=== PATIENT | male | born 1960 | race Caucasian/White ===

== ENCOUNTER 2020-01-27 10:11 | Inpatient (IN) ==
[2020-01-27] MEDS ORDERED: PANTOprazole 80 MG in DEXTROSE 5% 100 ML IV ONE (11:42)
[2020-01-27] MEDS ORDERED: FAMOTIDINE 20MG IV PUSH 20 MG/5 ML SYR IV STA (11:42)
[2020-01-27] MEDS ORDERED: SODIUM CHLORIDE 0.9% 1000ML 1,000 ML IV STA (11:42)
[2020-01-27] MEDS ORDERED: ONDANSETRON INJ 2 MG/ML 2 ML VIAL IV STA (11:42)
[2020-01-27] MEDS ORDERED: PANTOprazole 40 MG in DEXTROSE 5% 100 ML IV SCH (11:45)
[2020-01-27] MEDS ORDERED: SODIUM CHLORIDE 0.9% 500 ML IV SCH (11:45)
[2020-01-27 11:46] LABS: iSTAT Creatinine 0.9 mg/dl (0.6-1.3); iSTAT Hemoglobin 9.2 g/dl (14.0-18.0); iSTAT Ionized Calcium 1.19 mmol/l (1.12-1.32)
[2020-01-27 11:58] LABS: Basophils # (auto) 0.01 K/uL (0-0.2); Basophils % (auto) 0.1 %; Eosinophils # (auto) 0.03 K/uL (0-0.5); Eosinophils % (auto) 0.2 %; Hematocrit (blood only) 28.5 % (42-52); Hemoglobin 9.6 g/dL (14.0-18.0); Immature Granulocytes # (auto) 0.03 K/uL (0.00-0.02); Immature Granulocytes % (auto) 0.2 %; Mean Corpuscular Hemoglobin 30.2 pg (25-34); Mean Corpuscular Hgb Conc 33.7 g/dL (32-36); Mean Corpuscular Volume 89.6 fL (80-100); Monocytes # (auto) 0.78 K/uL (0.11-0.59); Monocytes % (auto) 6.2 %; Neutrophils # (auto) 10.17 K/uL (1.4-6.5); Neutrophils % (auto) 81.3 %; Platelet Count 319 K/uL (130-400); RDW Coefficient of Variation 15.4 % (11.5-14.5); RDW Standard Deviation 50.1 fL (36.4-46.3); Red Blood Count 3.18 M/uL (4.7-6.1); White Blood Count 12.52 K/uL (4.8-10.8)
[2020-01-27 12:09] LABS: Partial Thromboplastin Ratio 0.9; Partial Thromboplastin Time 24.2 Seconds (21.0-31.0); Prothrombin Time 10.5 Seconds (9.0-12.0)
[2020-01-27 12:16] LABS: Albumin Level 3.5 gm/dl (3.4-5.0); BUN Creatinine Ratio 28.7 (10-20); Calcium 8.8 mg/dl (8.5-10.1); Creatinine Clr Calc Pharmacy 104.7 ml/min; Est GFR (Non-African American) 86.3
[2020-01-27 12:18] LABS: Bilirubin,Total 0.3 mg/dl (0.2-1); Globulin 3.4 gm/dl (2.5-4.0); Total Protein 6.9 gm/dl (6.4-8.2)
--- NOTE | 2020-01-27 14:16 | Gastrointestinal Consultation ---
Date of Consultation January 27, 2020 Assessment & Plan (1) Rectal bleed: Yesterday's bloody emesis and yesterday and today's rectal bleeding may be from an anastomotic ulcer as he is post gastric bypass and was on NSAIDs for 10 days, increasing his risk for ulceration. 1. Urgent EGD 2. Continue Protonix Drip 3. Continue NPO 4. Further recommendations to follow EGD. Present on Admission?: Yes (2) Hematemesis: Supervising Physician Co-Signing Physician Notes Attending attestation I have seen, examined this patient, and agree with the findings and above by our mid-level provider YOVANNY Cuevas, with the following additions: HD stable, continue IV PPI, Plan for EGD today. History of Present Illness Reason for Consultation: GI Bleed Requesting Physician: Dr. Pelayo Attending Physician: Dr. Collier History of Present Illness Mr. William Soto is a 59 yr old male pt of Dr. Chiu with a hx HTN, obesity S/P "stomach stapling surgery 11 yr ago," who took naproxen 500mg BID for 10 days in mid December for hand surgery pain. Last night he experienced the sudden onset of diffuse abdominal pain, nausea/vomiting during eating dinner last night. Around 7PM yesterday, he vomited dark red blood and passed a large dark red bloody BM at the same time. He felt a bit lightheaded and sweaty but recovered with rest, feeling much better within an hour. Around 11PM, he passed a 2nd bloody BM but was able to sleep last night. Then at 5:30 this morning, he passed another bloody BM. Today, he has diffuse abdominal cramping and mild nausea. He is seen and examined in the ED. He is awake, alert, oriented and hemodynamically stable w/o tachycardia or hypotension. His Hb is .6, down from 12 in June 2019. He is mildly tender in the abdomen. A protonix drip is running. He has been NPO since some coffee around 6AM. Allergies Allergy/AdvReac Type Severity Reaction Status Date / Time No Known Allergies Allergy Unknown Verified 01/27/20 13:16 Home Medications Home Medications Medication Instructions Recorded Confirmed Type cholecalciferol (vitamin D3) 2,000 unit PO QAM 08/26/18 01/27/20 History levothyroxine [Levoxyl] 125 mcg PO QAM 08/26/18 01/27/20 History allopurinol 300 mg PO QAM 11/09/18 01/27/20 History lisinopril 20 mg PO QAM 11/09/18 01/27/20 History ascorbic acid (vitamin C) [Vitamin 1 g PO BID 01/27/20 01/27/20 History C] folic acid 1 mg PO QAM 01/27/20 01/27/20 History loratadine 10 mg PO QAM 01/27/20 01/27/20 History methotrexate sodium 15 mg PO WE 01/27/20 01/27/20 History montelukast 10 mg PO QAM 01/27/20 01/27/20 History naproxen 500 mg PO BID 01/27/20 01/27/20 History Patient History Medical History (Updated 01/27/20 @ 14:31 by Tod Jean) Chronic inflammatory arthritis Essential hypertension GI bleed Gout Hypothyroidism Vitamin D deficiency Surgical History History of release of tendon tenolysis left extensor finger complex 12/30/19 Hx of gastric bypass Status post trigger finger release Family History Other Gout Myocardial infarction Social History Smoking Status: Never smoker Hx Alcohol Use: No Hx Substance Use: No Preferred Language: [place] Feels Safe at Home: Yes Review of Systems Constitutional: + sweats and + weakness (for about an hour last night); no fever and no body aches Eyes: + corrective lenses; no eye pain and no problem reported Ear, Nose, Mouth, Throat: no tinnitus, no foul smell, no mouth lesions, no hoarseness, no dysphagia and no pain with swallowing Respiratory: no cough, no chest congestion, no pain with cough and no wheezing Cardiovascular: no chest pain, no dyspnea on exertion, no palpitations and no edema Gastrointestinal: as per HPI, otherwise (-) Genitourinary: no dysuria, no hematuria and no flank pain Musculoskeletal: + joint pain (several month, diffuse, seeing rheumatology; improved on methotrexate) Integumentary: no rash and no lesions Neurologic: no paresthesia, no tremor(s) and no headache(s) Psychiatric: no irritability, no anxiety and no confusion Endocrine: no fatigue, no polydipsia, no polyphagia and no polyuria Hematologic / Lymphatic: no easy bleeding, no coagulopathy and no lymphadenopathy Physical Exam Constitutional: WD/WN, vitals as above Eyes: PERRL, conjunctivae normal, anicteric sclerae ENMT: external ear and nose normal, oropharynx normal Neck: trachea midline, no thyromegaly Respiratory: normal respiratory effort, lungs clear to auscultation Cardiovascular: RRR, no murmur, no edema Gastrointestinal (Abdomen): Inspection/Auscultation: normal bowel sounds (hypoactive); abdomen not distended Percussion/Palpation: + abdomen tender (difuusely) and abdomen soft; no ascites Skin: no rashes, warm and dry normal turgor; no wound Neurologic: PERRL, EOMI, accommodation nl, no face palsy, no dysarthria Psychiatric: A+Ox3, euthymic affect Lymphatic: no cervical or axillary lymphadenopathy Results & Data ([facility]) Vital Signs (Past 12 Hours) Vital Signs Temp Pulse Pulse Resp BP BP Pulse Ox 01/27/20 12:33 92 H 92 H 22 110/67 99 01/27/20 11:44 105 H 18 124/75 98 01/27/20 10:18 36.8 C 128 H 20 106/68 97 Laboratory Results Hb 9.6, Hct 28, platelets 318 K 4.0, BUN 28, Cr 0.97
--- NOTE | 2020-01-27 14:17 | History & Physical Report ---
Date of Service January 27, 2020 Assessment & Plan (1) GI bleed: Likely related to recent NSAID use - suspect upper GI source. History of gastric bypass in 2008. - Protonix gtt started in ED - continue - Consult GI - NPO until seen by GI for potential EGD (check COVID-19 test prior to procedure) - Q8 hr H&H for stability - HOLD NSAIDS - Blood consent signed in case transfusion need for worsening H&H/additional blood loss (2) Chronic inflammatory arthritis: Holding NSAIDs. Next dose of methotrexate not until Thursday - Check B12 and folate levels (3) Essential hypertension: Hold Lisinopril for now due to concern for active GI blood loss - current BP borderline with systolic 100-110s. If evidence of elevation, can cautiously resume with holds (4) Hypothyroidism: - Continue levothyroxine Pt seen and reviewed with collaborating physician. Plan of care discussed and as outlined above. Spoke with GI pci security consultant who will see patient today. NPO until seen by GI. Pt requests to be a full code if reasonable change of recovery. If he is unable to make decisions for himself, his would be his decision-maker. No medical DVT prophylaxis due to GI bleed. Will use SCDs and encourage ambulation as tolerated. Peggy Sylvester PA-C History of Present Illness Chief Complaint: GI Bleed Primary Care Provider: Manny Chiu MD This is a 59 y/o male with a PMH of chronic inflammatory arthritis, Gout, HTN, hypothyroidism, vitamin D deficiency and recent hand surgery who presents to the ED today with bloody bowel movements and hematemesis. Pt reports that he had a tendon release of his left third finger about a month ago but has had ongoing issues with the hand so he was started on Naprosyn 500 mg BID 10-14 days ago by his surgery. He was feeling fine until last evening when he developed some bloating and GI upset while eating dinner. He developed weakness and cold sweats then had two episodes of hematemesis (dark blood) and had a large bloody BM around 7 pm. After about 15 minutes he started to feel better so he decided not to come to the ED. Around 11 pm, he had another bloody BM although not as severe. This morning he got up to get ready for work and around 5:30 am he had a third bloody BM so decided to come to the ED for evaluation. He denies significant abdominal pain or heartburn. He continues to feel bloated and like his stomach is unsettled at present. He reports an ongoing urge to defecate but no further bloody BMs since this morning. He denies prior history of similar symptoms or prior GI bleed. He has a hx of gastric bypass in 2008. He denies chest pain, palpitations, dyspnea, syncope, HAYES, dysphagia, hematuria, or upper respiratory symptoms. Allergies Allergy/AdvReac Type Severity Reaction Status Date / Time No Known Allergies Allergy Unknown Verified 01/27/20 13:16 Home Medications Home Medications Medication Instructions Recorded Confirmed Type cholecalciferol (vitamin D3) 2,000 unit PO QAM 08/26/18 01/27/20 History levothyroxine [Levoxyl] 125 mcg PO QAM 08/26/18 01/27/20 History allopurinol 300 mg PO QAM 11/09/18 01/27/20 History lisinopril 20 mg PO QAM 11/09/18 01/27/20 History ascorbic acid (vitamin C) [Vitamin 1 g PO BID 01/27/20 01/27/20 History C] folic acid 1 mg PO QAM 01/27/20 01/27/20 History loratadine 10 mg PO QAM 01/27/20 01/27/20 History methotrexate sodium 15 mg PO WE 01/27/20 01/27/20 History montelukast 10 mg PO QAM 01/27/20 01/27/20 History naproxen 500 mg PO BID 01/27/20 01/27/20 History Past Med/Surg History Medical History (Updated 01/27/20 @ 14:31 by Tod Jean) Chronic inflammatory arthritis Essential hypertension GI bleed Gout Hypothyroidism Vitamin D deficiency Surgical History History of release of tendon tenolysis left extensor finger complex 12/30/19 Hx of gastric bypass Status post trigger finger release Family History Other Gout Myocardial infarction Social History Smoking Status: Never smoker Hx Alcohol Use: No Hx Substance Use: No Preferred Language: Cuban Feels Safe at Home: Yes Review of Systems Review of Systems: All systems reviewed & are unremarkable except as noted in HPI & below Constitutional: + weakness (last night (see HPI)); no fever, no chills and no sweats Eyes: no diplopia Ear, Nose, Mouth, Throat: no nasal congestion, no nasal discharge, no sore throat and no dysphagia Respiratory: no cough, no chest congestion, no dyspnea and no wheezing Cardiovascular: no chest pain, no palpitations, no lightheadedness, no syncope and no edema Gastrointestinal: as per Subjective / HPI Genitourinary: no dysuria and no hematuria Musculoskeletal: + problem reported (ongoing issues with left hand) Methotrexate started 6-8 weeks ago with improvement of generalized chronic inflammatory arthritis pain other than left hand Integumentary: no rash and no unusual bruising Neurologic: no seizure-like activity, no syncope, no headache(s) and no abnormal speech Psychiatric: no depression and no anxiety Physical Exam Constitutional: WD/WN, vitals as above Eyes: + anicteric sclerae Neck: trachea midline Respiratory: no respiratory distress and no labored breathing Auscultation: lungs clear to auscultation bilaterally; no rales, no rhonchi and no wheezes Cardiovascular: Rate/Rhythm: regular rate and regular rhythm Heart Sounds: no gallop, no murmur and no cardiac rub Extremities: no pedal edema Gastrointestinal (Abdomen): Inspection/Auscultation: normal bowel sounds; abdomen not distended Percussion/Palpation: abdomen soft; abdomen nontender Musculoskeletal: Head/Neck/Chest: normocephalic and head atraumatic Extremities: no cyanosis and no clubbing Skin: no rashes, warm and dry + pallor (mild) Neurologic: moves all extremities; no focal motor deficits Speech / Cognition: normal speech Psychiatric: A+Ox3, euthymic affect Results & Data Results & Data ([facility]) Vital Signs (Past 12 Hours) Vital Signs Temp Pulse Pulse Resp BP BP Pulse Ox 01/27/20 12:33 92 H 92 H 22 110/67 99 01/27/20 11:44 105 H 18 124/75 98 01/27/20 10:18 36.8 C 128 H 20 106/68 97 Laboratory Results Laboratory Results - last 24 hr 01/27/20 01/27/20 01/27/20 11:20 11:20 11:20 WBC 12.52 H RBC 3.18 L Hgb 9.6 L POC Hgb Hct 28.5 L POC Hct MCV 89.6 MCH 30.2 MCHC 33.7 RDW Std Deviation 50.1 H RDW Coeff of Mg 15.4 H Plt Count 319 MPV 9.0 Immature Gran % (Auto) 0.2 Neut % (Auto) 81.3 Lymph % (Auto) 12.0 Patrick % (Auto) 6.2 Eos % (Auto) 0.2 Baso % (Auto) 0.1 Neut # (Auto) 10.17 H Lymph # (Auto) 1.50 Patrick # (Auto) 0.78 H Eos # (Auto) 0.03 Baso # (Auto) 0.01 Immature Gran # (Auto) 0.03 H PT 10.5 INR 1.0 APTT 24.2 PTT Ratio 0.9 POC Sodium Sodium 141 POC Potassium Potassium 4.0 POC Chloride Chloride 108 H Carbon Dioxide 26 POC Total CO2 Anion Gap 7.0 POC Anion Gap POC BUN BUN 28 H Creatinine 0.97 POC Creatinine Est Cr Clr Drug Dosing 104.7 Est GFR ( Amer) 100.0 Est GFR (Non-Af Amer) 86.3 BUN/Creatinine Ratio 28.7 H Glucose 125 H POC Glucose (other) Calcium 8.8 POC Ioniz Calcium Fabi Total Bilirubin 0.3 AST 13 L ALT 23 Alkaline Phosphatase 77 Total Protein 6.9 Albumin 3.5 Globulin 3.4 Albumin/Globulin Ratio 1.0 POC Stool Occult Blood Blood Type Antibody Screen 01/27/20 01/27/20 01/27/20 11:32 12:06 Unknown WBC RBC Hgb POC Hgb 9.2 L Hct POC Hct 27 L MCV MCH MCHC RDW Std Deviation RDW Coeff of Mg Plt Count MPV Immature Gran % (Auto) Neut % (Auto) Lymph % (Auto) Patrick % (Auto) Eos % (Auto) Baso % (Auto) Neut # (Auto) Lymph # (Auto) Patrick # (Auto) Eos # (Auto) Baso # (Auto) Immature Gran # (Auto) PT INR APTT PTT Ratio POC Sodium 140 Sodium POC Potassium 4.0 Potassium POC Chloride 105 Chloride Carbon Dioxide POC Total CO2 22 L Anion Gap POC Anion Gap 17.0 POC BUN 25 H BUN Creatinine POC Creatinine 0.9 Est Cr Clr Drug Dosing Est GFR ( Amer) Est GFR (Non-Af Amer) BUN/Creatinine Ratio Glucose POC Glucose (other) 128 H Calcium POC Ioniz Calcium Fabi 1.19 Total Bilirubin AST ALT Alkaline Phosphatase Total Protein Albumin Globulin Albumin/Globulin Ratio POC Stool Occult Blood Positive A Blood Type A Positive Antibody Screen NEGATIVE Medications Administered Pantoprazole Sodium 40 mg/ (Dextrose) 100 mls @ 20 mls/hr IV Q5H KIANA Stop: 01/27/20 16:44 Last Admin: 01/27/20 12:32 Dose: 8 mg/hr, 20 mls/hr Documented by: [id number] Sodium Chloride (Nss 1000ml) 1,000 mls @ 125 mls/hr IV .Q8H STA Stop: 01/27/20 19:41 Last Admin: 01/27/20 11:49 Dose: 125 mls/hr Documented by: [id number] Discontinued Medications Sodium Chloride (Nss) 500 mls @ 999 mls/hr IV .Q31M KIANA Stop: 01/27/20 12:15 Last Infusion: 01/27/20 12:19 Dose: 0 mls/hr Documented by: [id number] Admin: 01/27/20 11:49 Dose: 999 mls/hr Documented by: [id number] Pantoprazole Sodium 80 mg/ (Dextrose) 100 mls @ 400 mls/hr IV NOW ONE Stop: 01/27/20 11:56 Last Infusion: 01/27/20 12:47 Dose: 0 mls/hr Documented by: [id number] Admin: 01/27/20 12:32 Dose: 400 mls/hr Documented by: [id number] Famotidine (Pepcid 20mg Iv Push) 20 mg in 5 mls @ 2.5 mls/min IV NOW STA Stop: 01/27/20 11:43 Last Admin: 01/27/20 11:51 Dose: 2.5 mls/min Documented by: [id number] Ondansetron HCl (Ondansetron Inj 2 Mg/Ml 2 Ml Vial) 4 mg IV ONE STA Stop: 01/27/20 11:43 Last Admin: 01/27/20 11:52 Dose: 4 mg Documented by: [id number] Code Status & VTE Plan VTE Prophylaxis Plan VTE Prophylaxis will be ordered: Yes Supervising Physician Co-Signing Physician Notes I, Travis Pelayo, have seen and examined the William Soto and also discussed the plans with physician assurance assistant On physical exam General: no acute distress Heart: regular Lungs: clear to auscultation bilaterally Abdomen: soft, nontender Neuro/Extremities; no focal neurological deficits, moves all extremoties Assessment and Plan -main issue is that patient with 1 day of abdominal discomfort and associated with hematemesis and blood per rectum. Patient has decrease of usual baseline hemoglobin around 12 to 9. Patient has been recently on scheduled Naproxen for history of hand surgery and presumably the GI bleed is associated with NSAID use -stop NSAID use, give IV fluids, IV pantoprazole, trend the CBC, GI consult for upper endoscopy/colonoscopy -no suspicion of COVID 19 but screening is ordered because of possible gastrointestinal procedure -history of methotrexate use for chronic inflammatory arthritis, check serum folic acid and vs serum B12 -DVT ppx: SCDs -agree with other assessment and plans as documented by physician assurance assistant on management of blood pressure and hypothyroidism -agree with other assessment and plans as documented by physician assurance assistant -My colleague Dr. Collier will be the hospitalist attending starting on 01/28/2020 (1) GI bleed GI bleed type/associated pathology: unspecified gastrointestinal hemorrhage type Qualified Code(s): K92.2 - Gastrointestinal hemorrhage, unspecified (2) Hypothyroidism Hypothyroidism type: acquired Qualified Code(s): E03.9 - Hypothyroidism, unspecified
--- NOTE | 2020-01-27 14:29 | Anesthesiology Consultation ---
Date of Service January 27, 2020 Assessment & Plan (1) Encounter for pre-operative examination: Chart Review Chart Review: Acceptable Risk for Surgery and Patient NOT seen in Pre Admission Testing Consults Requested none History Height/Weight Height: 5 ft 6 in Weight: 124.5 kg Allergies Allergy/AdvReac Type Severity Reaction Status Date / Time No Known Allergies Allergy Unknown Verified 01/27/20 13:16 Medications Home Medications Medication Instructions Recorded Confirmed Last Taken cholecalciferol (vitamin D3) 2,000 unit PO QAM 08/26/18 01/27/20 01/27/20 levothyroxine [Levoxyl] 125 mcg PO QAM 08/26/18 01/27/20 01/27/20 allopurinol 300 mg PO QAM 11/09/18 01/27/20 01/27/20 lisinopril 20 mg PO QAM 11/09/18 01/27/20 01/27/20 ascorbic acid (vitamin C) [Vitamin 1 g PO BID 01/27/20 01/27/20 Unknown C] folic acid 1 mg PO QAM 01/27/20 01/27/20 01/27/20 loratadine 10 mg PO QAM 01/27/20 01/27/20 01/27/20 methotrexate sodium 15 mg PO WE 01/27/20 01/27/20 01/25/20 montelukast 10 mg PO QAM 01/27/20 01/27/20 01/27/20 naproxen 500 mg PO BID 01/27/20 01/27/20 01/26/20 07:00 Active Medications Generic Name Dose Route Start Last Admin Trade Name Freq PRN Reason Stop Dose Admin Pantoprazole Sodium 40 mg/ 100 mls @ 20 mls/hr 01/27/20 11:45 01/27/20 12:32 Dextrose IV 01/27/20 16:44 8 mg/hr Q5H KIANA 20 mls/hr Administration 8 MG/HR Sodium Chloride 1,000 mls @ 125 mls/hr 01/27/20 11:42 01/27/20 11:49 Nss 1000ml IV 01/27/20 19:41 125 mls/hr .Q8H STA Administration Past Medical History Medical History (Updated 01/27/20 @ 14:29 by Jose Quevedo MD) Chronic inflammatory arthritis Essential hypertension GI bleed Gout Hypothyroidism Vitamin D deficiency Past Family History Family History Other Gout Myocardial infarction Past Surgical History Surgical History History of release of tendon tenolysis left extensor finger complex 12/30/19 Hx of gastric bypass Status post trigger finger release Past Anesthesia History No Hx of Anesthesia Complications and No Family Hx of Anesthesia Complications History of PONV No Hx of PONV and No Hx of Motion Sickness Social History Smoking Status: Never smoker Hx Alcohol Use: No Hx Substance Use: No Physical Exam Vital Signs Last Vital Signs Temp 36.8 C 01/27/20 10:18 Pulse 92 H 01/27/20 12:33 Resp 22 01/27/20 12:33 BP 110/67 01/27/20 12:33 Pulse Ox 99 01/27/20 12:33 Testing Laboratory Results 01/27/20 11:20 01/27/20 11:20 PT 10.5 Seconds (9.0-12.0) 01/27/20 11:20 INR 1.0 (0.9-1.1) 01/27/20 11:20 APTT 24.2 Seconds (21.0-31.0) 01/27/20 11:20 Blood Type A Positive 01/27/20 12:06 Antibody Screen NEGATIVE 01/27/20 12:06 01/27/20 11:32 POC Glucose (other) 128 H Electrocardiogram Date: 01/27/20 Findings: + ST @ (113) Sinus tachycardia Otherwise normal ECG When compared with ECG of 26-AUG-2018 19:46, Vent. rate has increased BY 38 BPM
[2020-01-27] MEDS ORDERED: GLYCOPYRROLATE 0.2 MG/ML VIAL ONE (14:47)
[2020-01-27] MEDS ORDERED: ONDANSETRON INJ 2 MG/ML 2 ML VIAL ONE (14:47)
[2020-01-27] MEDS ORDERED: PROPOFOL IV EMULSION 10 MG/ML 20 ML VIAL IV ONE (14:47)
[2020-01-27] MEDS ORDERED: LIDOCAINE HCL 2% 2 ML VIAL/AMP(20MG/ML) INFIL ONE (14:48)
--- NOTE | 2020-01-27 15:20 | Emergency Department Note ---
Impression & Plan Acute upper gastrointestinal bleeding ED Provider Note INFORMANT: Patient ED PROVIDER(S): Constantino Vazquez MD CHIEF COMPLAINT: GI bleeding PLAN: Disposition: Admitted Condition: Good MEDICAL DECISION MAKING: Patient presented to emergency department complaining of GI bleeding. Rectal examination was concerning for gross blood. The patient did have pale conjunctiva. He had borderline low blood pressure. He was treated with normal saline. He was placed on Protonix and Pepcid. His blood work does show a mild anemia which has progressed from his outpatient labs. The patient has unremarkable laboratory studies otherwise. Further management will be necessary in the hospital. I did discuss the case with the [facility], Britney Sylvester PA-C. The patient will be admitted by Dr. Pelayo. She will consult with GI. Triage Nursing notes reviewed and agree them. Vital Signs: reviewed and remarkable for tachycardia Differential diagnosis: Marginal ulcer, NSAID gastropathy, diverticulosis, AVM, coagulopathy, colitis, inflammatory bowel disease, malignancy, Jamee-Hernandez tear, esophagitis, peptic ulcer disease, variceal bleed, gastritis, epistaxis, fissure, hemorrhoids, as well as other pathologies. Diagnostics interpreted by me: ECG: Twelve-lead ECG reveals sinus tachycardia at 113 bpm. There is no ST elevation or depression. No PACs or PVCs. Normal axis and QRS. Cardiac Monitoring: Cardiac monitoring ordered by me: The patient was placed on continuous cardiac monitoring and observed. It revealed a normal sinus rhythm at 95 beats per minute without ectopy or evidence of dysrhythmia. Consultation(s): [facility] HPI: The patient is a 59 year old male who presents to the Emergency Room with complaints of GI bleeding. This started last night and is described as vomiting blood as well as having bloody bowel movements. The patient also notes the following associated symptoms, nausea and some epigastric abdominal discomfort. The patient has found no relieving factors. Current pain is rated as 3/10. Patient states he has been using Naprosyn for the last week and a half because of an orthopedic surgery issue on his hand. He does have a history of gastric bypass. Pt denies LOC, headache, fevers, chills, diaphoresis, visual changes, neck pain, chest pain, breathing difficulties, back pain, urinary symptoms, numbness, weakness, lymphadenopathy, rash, or other complaints. ROS: See above HPI for pertinent positives & negatives. A total of 10 systems reviewed and were otherwise negative. PAST MEDICAL HISTORY:See Below, hypertension PAST SURGICAL HISTORY:See Below, gastric bypass FAMILY HISTORY:See Below SOCIAL HISTORY:See Below, employed HOME MEDICATIONS:See Below ALLERGIES:See Below VITALS:See Below PHYSICAL EXAMINATION: GENERAL: Awake, alert, mildly uncomfortable-appearing, in no distress HENT: Normocephalic, atraumatic. Oropharynx unremarkable. EYES: Pale conjunctiva. Sclera non-icteric. NECK: Inspection normal. Non-tender. Supple. No nuchal rigidity. FROM. No masses. RESPIRATORY: Clear to auscultation. No wheezes. No rales. Normal respiratory effort. CARDIAC: Normal rate. Normal rhythm. No murmurs. No rubs. Extremities warm and well perfused. Pulses equal. No JVD. GI: Soft, non-distended. No tenderness to palpation. No rebound or guarding. No masses. RECTAL: Grossly bloody. Heme positive. MUSCULOSKELETAL: Atraumatic. Chest examination reveals no tenderness. The back is symmetrical on inspection without obvious abnormality. There is no CVA tenderness to palpation. No joint edema. LOWER EXTREMITIES: Calves are equal size bilaterally and non-tender. No edema. No discoloration. NEURO: Normal sensorium. No sensory or motor deficits noted. SKIN: No rash or jaundice noted. Constantino Vazquez MD Past Med/Surg History Medical History (Updated 01/27/20 @ 15:15 by Constantino Vazquez MD) Chronic inflammatory arthritis Essential hypertension GI bleed Gout Hypothyroidism Vitamin D deficiency Surgical History History of release of tendon tenolysis left extensor finger complex 12/30/19 Hx of gastric bypass Status post trigger finger release Family History Other Gout Myocardial infarction Social History Smoking Status: Never smoker Hx Alcohol Use: No Hx Substance Use: No Preferred Language: Canadian Feels Safe at Home: Yes Allergies Allergies Allergy/AdvReac Type Severity Reaction Status Date / Time No Known Allergies Allergy Unknown Verified 01/27/20 13:16 Home Meds Home Medications Medication Instructions Recorded Confirmed cholecalciferol (vitamin D3) 2,000 unit PO QAM 08/26/18 01/27/20 levothyroxine [Levoxyl] 125 mcg PO QAM 08/26/18 01/27/20 allopurinol 300 mg PO QAM 11/09/18 01/27/20 lisinopril 20 mg PO QAM 11/09/18 01/27/20 ascorbic acid (vitamin C) [Vitamin 1 g PO BID 01/27/20 01/27/20 C] folic acid 1 mg PO QAM 01/27/20 01/27/20 loratadine 10 mg PO QAM 01/27/20 01/27/20 methotrexate sodium 15 mg PO WE 01/27/20 01/27/20 montelukast 10 mg PO QAM 01/27/20 01/27/20 naproxen 500 mg PO BID 01/27/20 01/27/20 Results & Data (ED) Vital Signs Vital Signs - 24 hr 01/27/20 10:18 01/27/20 11:44 01/27/20 12:33 Temperature 36.8 C Temperature Source Oral Pulse Rate 128 H 92 H Pulse Rate [Apical] 105 H 92 H Pulse Rhythm Regular Regular Pulse Rhythm [Apical] Regular Regular Pulse Strength Normal Pulse Strength [Apical] Normal Normal Respiratory Rate 20 18 22 Respiratory Effort / Characteristics Non-Labored Spontaneous Non-Labored Spontaneous Non-Labored Spontaneous Respiratory Depth Normal Normal Normal Respiratory Pattern Regular Regular Regular Blood Pressure 106/68 Blood Pressure [Left Arm] 124/75 110/67 Blood Pressure Mean 80 Blood Pressure Mean [Left Arm] 91 81 Blood Pressure Position Sitting Blood Pressure Position [Left Arm] Sitting Sitting Pulse Oximetry 97 98 99 Oxygen Delivery Method Room Air Room Air Room Air Sepsis Recent Fever Within 48 Hours No Sepsis New/Unexplained Change in Mental Status No Sepsis Action Taken by Nursing No Action Required 01/27/20 14:45 Temperature Temperature Source Pulse Rate Pulse Rate [Apical] 106 H Pulse Rhythm Pulse Rhythm [Apical] Pulse Strength Pulse Strength [Apical] Respiratory Rate 20 Respiratory Effort / Characteristics Non-Labored Respiratory Depth Normal Respiratory Pattern Blood Pressure Blood Pressure [Left Arm] 109/69 Blood Pressure Mean Blood Pressure Mean [Left Arm] 82 Blood Pressure Position Blood Pressure Position [Left Arm] Pulse Oximetry 97 Oxygen Delivery Method Room Air Sepsis Recent Fever Within 48 Hours Sepsis New/Unexplained Change in Mental Status Sepsis Action Taken by Nursing Laboratory Data Result diagrams: 01/27/20 11:20 01/27/20 11:20 Lab Results 01/27/20 01/27/20 01/27/20 Range/Units 11:20 11:20 11:20 WBC 12.52 H (4.8-10.8) K/uL RBC 3.18 L (4.7-6.1) M/uL Hgb 9.6 L (14.0-18.0) g/dL POC Hgb (14.0-18.0) g/dl Hct 28.5 L (42-52) % POC Hct (42-52) % MCV 89.6 (80-100) fL MCH 30.2 (25-34) pg MCHC 33.7 (32-36) g/dL RDW Std Deviation 50.1 H (36.4-46.3) fL RDW Coeff of Mg 15.4 H (11.5-14.5) % Plt Count 319 (130-400) K/uL MPV 9.0 (7.4-10.4) fL Immature Gran % (Auto) 0.2 % Neut % (Auto) 81.3 % Lymph % (Auto) 12.0 % Major % (Auto) 6.2 % Eos % (Auto) 0.2 % Baso % (Auto) 0.1 % Neut # (Auto) 10.17 H (1.4-6.5) K/uL Lymph # (Auto) 1.50 (1.2-3.4) K/uL Major # (Auto) 0.78 H (0.11-0.59) K/uL Eos # (Auto) 0.03 (0-0.5) K/uL Baso # (Auto) 0.01 (0-0.2) K/uL Immature Gran # (Auto) 0.03 H (0.00-0.02) K/uL PT 10.5 (9.0-12.0) Seconds INR 1.0 (0.9-1.1) APTT 24.2 (21.0-31.0) Seconds PTT Ratio 0.9 POC Sodium (135-144) mmol/L Sodium 141 (136-145) mmol/L POC Potassium (3.3-5.0) mmol/L Potassium 4.0 (3.5-5.1) mmol/L POC Chloride (101-112) mmol/L Chloride 108 H (98-107) mmol/L Carbon Dioxide 26 (21-32) mmol/L POC Total CO2 (24-31) mmol/L Anion Gap 7.0 (3-11) POC Anion Gap (16-25) mmol/L POC BUN (7-18) mg/dl BUN 28 H (7-18) mg/dl Creatinine 0.97 (0.6-1.4) mg/dl POC Creatinine (0.6-1.3) mg/dl Est Cr Clr Drug Dosing 104.7 ml/min Est GFR ( Amer) 100.0 Est GFR (Non-Af Amer) 86.3 BUN/Creatinine Ratio 28.7 H (10-20) Glucose 125 H (70-99) mg/dl POC Glucose (other) (70-99) mg/dl Calcium 8.8 (8.5-10.1) mg/dl POC Ioniz Calcium Fabi (1.12-1.32) mmol/l Total Bilirubin 0.3 (0.2-1) mg/dl AST 13 L (15-37) U/L ALT 23 (12-78) U/L Alkaline Phosphatase 77 (45-117) U/L Total Protein 6.9 (6.4-8.2) gm/dl Albumin 3.5 (3.4-5.0) gm/dl Globulin 3.4 (2.5-4.0) gm/dl Albumin/Globulin Ratio 1.0 (0.9-2) POC Stool Occult Blood (Negative) Blood Type Antibody Screen 01/27/20 01/27/20 01/27/20 Range/Units 11:32 12:06 Unknown WBC (4.8-10.8) K/uL RBC (4.7-6.1) M/uL Hgb (14.0-18.0) g/dL POC Hgb 9.2 L (14.0-18.0) g/dl Hct (42-52) % POC Hct 27 L (42-52) % MCV (80-100) fL MCH (25-34) pg MCHC (32-36) g/dL RDW Std Deviation (36.4-46.3) fL RDW Coeff of Mg (11.5-14.5) % Plt Count (130-400) K/uL MPV (7.4-10.4) fL Immature Gran % (Auto) % Neut % (Auto) % Lymph % (Auto) % Major % (Auto) % Eos % (Auto) % Baso % (Auto) % Neut # (Auto) (1.4-6.5) K/uL Lymph # (Auto) (1.2-3.4) K/uL Major # (Auto) (0.11-0.59) K/uL Eos # (Auto) (0-0.5) K/uL Baso # (Auto) (0-0.2) K/uL Immature Gran # (Auto) (0.00-0.02) K/uL PT (9.0-12.0) Seconds INR (0.9-1.1) APTT (21.0-31.0) Seconds PTT Ratio POC Sodium 140 (135-144) mmol/L Sodium (136-145) mmol/L POC Potassium 4.0 (3.3-5.0) mmol/L Potassium (3.5-5.1) mmol/L POC Chloride 105 (101-112) mmol/L Chloride (98-107) mmol/L Carbon Dioxide (21-32) mmol/L POC Total CO2 22 L (24-31) mmol/L Anion Gap (3-11) POC Anion Gap 17.0 (16-25) mmol/L POC BUN 25 H (7-18) mg/dl BUN (7-18) mg/dl Creatinine (0.6-1.4) mg/dl POC Creatinine 0.9 (0.6-1.3) mg/dl Est Cr Clr Drug Dosing ml/min Est GFR ( Amer) Est GFR (Non-Af Amer) BUN/Creatinine Ratio (10-20) Glucose (70-99) mg/dl POC Glucose (other) 128 H (70-99) mg/dl Calcium (8.5-10.1) mg/dl POC Ioniz Calcium Fabi 1.19 (1.12-1.32) mmol/l Total Bilirubin (0.2-1) mg/dl AST (15-37) U/L ALT (12-78) U/L Alkaline Phosphatase (45-117) U/L Total Protein (6.4-8.2) gm/dl Albumin (3.4-5.0) gm/dl Globulin (2.5-4.0) gm/dl Albumin/Globulin Ratio (0.9-2) POC Stool Occult Blood Positive A (Negative) Blood Type A Positive Antibody Screen NEGATIVE Administered Medications Pantoprazole Sodium 40 mg/ (Dextrose) 100 mls @ 20 mls/hr IV Q5H KIANA Stop: 01/27/20 16:44 Last Admin: 01/27/20 12:32 Dose: 8 mg/hr, 20 mls/hr Documented by: [id number] Sodium Chloride (Nss 1000ml) 1,000 mls @ 125 mls/hr IV .Q8H STA Stop: 01/27/20 19:41 Last Admin: 01/27/20 11:49 Dose: 125 mls/hr Documented by: [id number] Discontinued Medications Sodium Chloride (Nss) 500 mls @ 999 mls/hr IV .Q31M KIANA Stop: 01/27/20 12:15 Last Infusion: 01/27/20 12:19 Dose: 0 mls/hr Documented by: [id number] Admin: 01/27/20 11:49 Dose: 999 mls/hr Documented by: [id number] Pantoprazole Sodium 80 mg/ (Dextrose) 100 mls @ 400 mls/hr IV NOW ONE Stop: 01/27/20 11:56 Last Infusion: 01/27/20 12:47 Dose: 0 mls/hr Documented by: [id number] Admin: 01/27/20 12:32 Dose: 400 mls/hr Documented by: [id number] Famotidine (Pepcid 20mg Iv Push) 20 mg in 5 mls @ 2.5 mls/min IV NOW STA Stop: 01/27/20 11:43 Last Admin: 01/27/20 11:51 Dose: 2.5 mls/min Documented by: [id number] Ondansetron HCl (Ondansetron Inj 2 Mg/Ml 2 Ml Vial) 4 mg IV ONE STA Stop: 01/27/20 11:43 Last Admin: 01/27/20 11:52 Dose: 4 mg Documented by: [id number] Discharge Plan Visit Data Chief Complaint: GI Assessment Stated Complaint: LOTS OF BLOODY STODR SCOTT SANCHEZ ED Provider: Constantino Vazquez Discharge Problem: Acute upper gastrointestinal bleeding Patient Disposition: Admitted As Inpatient Discharge Instructions Interventions: ED Discharge Assessment Last Done: 01/27/20 14:46 Forms Stand Alone Forms: My [facility] Prescriptions Prescriptions: No Action methotrexate sodium 2.5 mg tablet 15 mg PO WE RF: 0 folic acid 1 mg tablet 1 mg PO QAM RF: 0 montelukast 10 mg tablet 10 mg PO QAM RF: 0 loratadine 10 mg Tablet 10 mg PO QAM RF: 0 naproxen 500 mg tablet 500 mg PO BID RF: 0 Vitamin C 1,000 mg Tablet,Chewable 1 g PO BID RF: 0 levothyroxine [Levoxyl] 125 mcg tablet 125 mcg PO QAM RF: 0 cholecalciferol (vitamin D3) 2,000 unit Tablet 2,000 unit PO QAM RF: 0 lisinopril 20 mg tablet 20 mg PO QAM RF: 0 allopurinol 300 mg tablet 300 mg PO QAM RF: 0 Referrals Referrals: Manny Chiu MD [Primary Care Provider] -
--- NOTE | 2020-01-27 15:54 | Anesthesiology Progress Note ---
Date of Service January 27, 2020 Anesthesia Post Procedure Vital Signs Vital Signs: Temp Pulse Pulse Resp BP BP Pulse Ox 01/27/20 14:45 106 H 20 109/69 97 01/27/20 12:33 92 H 92 H 22 110/67 99 01/27/20 11:44 105 H 18 124/75 98 01/27/20 10:18 36.8 C 128 H 20 106/68 97 Transfer of Care Handoff Completed per policy Notes Mental Status: alert / awake / arousable and participated in evaluation Patient Amnestic to Procedure: Yes Nausea / Vomiting: adequately controlled Pain: adequately controlled Airway Patency, RR, SpO2: stable & adequate BP & HR: stable & adequate Hydration State: stable & adequate Anesthetic Complications: no major complications apparent and Pt Satisfied with anesthetic care
[2020-01-27 19:42] LABS: Hematocrit (blood only) 23.3 % (42-52)
--- NOTE | 2020-01-27 22:57 | Electrocardiogram Report ---
Test Reason : Blood Pressure : / mmHG Vent. Rate : 113 BPM Atrial Rate : 113 BPM P-R Int : 130 ms QRS Dur : 078 ms QT Int : 296 ms P-R-T Axes : 055 001 033 degrees QTc Int : 406 ms Sinus tachycardia Nonspecific ST abnormality When compared with ECG of 26-AUG-2018 19:46, Vent. rate has increased BY 38 BPM Confirmed by El Mansfield ([id number]) on 01/27/2020 10:57:05 PM Referred By: REFERRED SELF Confirmed By:El Mansfield
[2020-01-28 04:53] LABS: BUN Creatinine Ratio 22.8 (10-20); Creatinine Clr Calc Pharmacy 105.2 ml/min; Est GFR (African American) 101.3; Est GFR (Non-African American) 87.4; Potassium 4.1 mmol/L (3.5-5.1)
[2020-01-28 05:44] LABS: Hematocrit (blood only) 21.6 % (42-52); Hemoglobin 6.9 g/dL (14.0-18.0)
[2020-01-28] MEDS ORDERED: SODIUM CHLORIDE 0.9% 250 ML IV PRN (06:00)
[2020-01-28] MEDS ORDERED: LEVOTHYROXINE SODIUM 125 MCG TABLET PO SCH (06:30)
[2020-01-28] MEDS ORDERED: ACETAMINOPHEN 325 MG TAB PO ONE (07:30)
[2020-01-28 09:45] LABS: Folate (Folic Acid) 18.49 ng/ml (>5.38)
[2020-01-28] MEDS ORDERED: PANTOprazole 40 MG TAB PO SCH (09:45)
[2020-01-28] MEDS: SUCRALFATE 1 GM/10 ML UDC PO SCH ×2 (10:11→13:43)
[2020-01-28] MEDS ORDERED: FUROSEMIDE 20 MG in SYRINGE 0 ML IV ONE (10:30)
[2020-01-28] MEDS ORDERED: miSOPROStoL 100 MCG TAB PO SCH (13:00)
[2020-01-28 13:35] LABS: Hemoglobin 9.4 g/dL (14.0-18.0)
--- NOTE | 2020-01-28 14:46 | Hospitalist Progress Note ---
Date of Service January 28, 2020 Assessment & Plan (1) GI bleed: upper GI bleed -gastric ulcer due to NSAID use - appreciate in put from GI EGD shows cleaned based ulcer at prior gastric bypass area no sign of active bleed no further episode of GI bleed D/w GI stable to be discharged home on : protonix 40 mg BID for 2 months /Carafate 1 gm QID for 2 months /Mesopritol 100 mcg daily for 2 months repeat EGD in 2 months to assess healing pt is asked to avoid NSAID -strictly . verbalized understanding (2) Chronic inflammatory arthritis: Next dose of methotrexate not until Thursday - pt is counselled not take NSAIDS inf future ok to take Tylenol or other group of pain meds not belonging to NSAID (3) Essential hypertension: cont home meds (4) Hypothyroidism: - Continue levothyroxine Stable to be discharged home today Admission and Anticipated Discharge Date Admission Date: January 27, 2020 Subjective no further episode of GI bleed no dark stool or Melena vitals stable diet advanced to solid , tolerating well discussed with Gi stable to be discharged home today Physical Exam Constitutional: WD/WN, vitals as above Eyes: PERRL, conjunctivae normal, anicteric sclerae ENMT: external ear and nose normal, oropharynx normal Neck: trachea midline, no thyromegaly Respiratory: normal respiratory effort, lungs clear to auscultation Cardiovascular: RRR, no murmur, no edema Gastrointestinal (Abdomen): normal bowel sounds, soft, nontender, no hepatosplenomegaly Musculoskeletal: no cyanosis or clubbing, extremities motor strength 5/5 Skin: no rashes, warm and dry Neurologic: PERRL, EOMI, accommodation nl, no face palsy, no dysarthria Psychiatric: A+Ox3, euthymic affect Results & Data Results & Data ([facility]) Vital Signs (Past 12 Hours) Vital Signs Temp Pulse Pulse Resp BP BP Pulse Ox 01/28/20 12:16 36.9 C 78 16 114/71 98 01/28/20 11:15 36.9 C 71 18 126/86 98 01/28/20 10:45 36.8 C 98 H 16 123/83 98 01/28/20 10:30 36.8 C 82 16 112/67 98 01/28/20 10:14 36.8 C 78 16 107/78 98 01/28/20 10:12 36.8 C 78 16 107/78 98 01/28/20 10:10 36.8 C 78 16 107/78 98 01/28/20 09:25 36.8 C 74 18 111/79 97 01/28/20 08:25 36.9 C 83 18 98/59 L 96 01/28/20 07:55 36.9 C 86 16 102/67 96 01/28/20 07:40 37.1 C 80 18 94/64 L 98 01/28/20 07:17 36.7 C 90 16 118/74 97 01/28/20 05:08 36.6 C 88 18 113/69 95 (1) GI bleed GI bleed type/associated pathology: unspecified gastrointestinal hemorrhage type Qualified Code(s): K92.2 - Gastrointestinal hemorrhage, unspecified (2) Hypothyroidism Hypothyroidism type: acquired Qualified Code(s): E03.9 - Hypothyroidism, unspecified
--- NOTE | 2020-01-28 14:47 | Discharge Summary ---
Date of Service January 28, 2020 Admission HPI Per Admitting Provider This is a 59 y/o male with a PMH of chronic inflammatory arthritis, Gout, HTN, hypothyroidism, vitamin D deficiency and recent hand surgery who presents to the ED today with bloody bowel movements and hematemesis. Pt reports that he had a tendon release of his left third finger about a month ago but has had ongoing issues with the hand so he was started on Naprosyn 500 mg BID 10-14 days ago by his surgery. He was feeling fine until last evening when he developed some bloating and GI upset while eating dinner. He developed weakness and cold sweats then had two episodes of hematemesis (dark blood) and had a large bloody BM around 7 pm. After about 15 minutes he started to feel better so he decided not to come to the ED. Around 11 pm, he had another bloody BM although not as severe. This morning he got up to get ready for work and around 5:30 am he had a third bloody BM so decided to come to the ED for evaluation. He denies significant abdominal pain or heartburn. He continues to feel bloated and like his stomach is unsettled at present. He reports an ongoing urge to defecate but no further bloody BMs since this morning. He denies prior history of similar symptoms or prior GI bleed. He has a hx of gastric bypass in 2008. He denies chest pain, palpitations, dyspnea, syncope, HAYES, dysphagia, hematuria, or upper respiratory symptoms. Principal Diagnosis Rectal bleed, Gastric ulcer: Due to NSAID use Acute blood loss anemia secondary to GI bleed required blood transfusion Discharge Exam Constitutional WD/WN, vitals as above Eyes PERRL, conjunctivae normal, anicteric sclerae ENMT external ear and nose normal, oropharynx normal Neck trachea midline, no thyromegaly Respiratory normal respiratory effort, lungs clear to auscultation Cardiovascular RRR, no murmur, no edema Gastrointestinal (Abdomen) normal bowel sounds, soft, nontender, no hepatosplenomegaly Musculoskeletal no cyanosis or clubbing, extremities motor strength 5/5 Skin no rashes, warm and dry Neurologic PERRL, EOMI, accommodation nl, no face palsy, no dysarthria Psychiatric A+Ox3, euthymic affect Discharge Data Allergies Allergy/AdvReac Type Severity Reaction Status Date / Time No Known Allergies Allergy Unknown Verified 01/27/20 16:30 Consultations 01/27/20 13:34 ED Decision to Admit Stat 01/27/20 13:59 Consult Gastroenterology Routine Hospital Course (1) GI bleed: upper GI bleed -gastric ulcer due to NSAID use - appreciate in put from GI EGD shows cleaned based ulcer at prior gastric bypass area no sign of active bleed no further episode of GI bleed D/w GI stable to be discharged home on : protonix 40 mg BID for 2 months /Carafate 1 gm QID for 2 months /Mesopritol 100 mcg daily for 2 months repeat EGD in 2 months to assess healing pt is asked to avoid NSAID -strictly . verbalized understanding (2) Chronic inflammatory arthritis: Next dose of methotrexate not until Thursday - pt is counselled not take NSAIDS inf future ok to take Tylenol or other group of pain meds not belonging to NSAID (3) Essential hypertension: cont home meds (4) Hypothyroidism: - Continue levothyroxine Stable to be discharged home today Total Time Total Time Spent Total Time Spent (In Minutes): 35 mins Total Time Includes: Examination of the Patient, Discharge Planning and Medication Reconciliation Discharge Plan Discharge Items Patient Disposition: Home - Self-Care Reason For Visit: GI BLEED Discharge Diagnosis: Rectal bleed, Gastric ulcer: Due to NSAID use Acute blood loss anemia secondary to GI bleed required blood transfusion Activity: Resume your previous activity Non-emergency contact: Primary Care Provider Call non-emergency contact if: you have any medication questions Follow-up/Referrals: Dougie Tubbs [Physician] - (Follow-up with gastroenterology for repeat upper endoscopy in 2 months) Manny Chiu MD [Primary Care Provider] - Diet: Regular Addtl Attending Provider Instructions: Do not take aspirin, Advil, Aleve Motrin, naproxen, ibuprofen-avoid all [id number] pain medication belonging to class NSAIDs, Can take Tylenol as needed for pain Continue take Protonix 40 mg twice daily for 2 months Carafate suspension 1 g 4 times daily for 2 months Misopristol 100 mcg 4 times daily for 2 months You will need a repeat upper endoscopy in 2 months to check healing of your gastric ulcer Please notify your family physician or return back to the ER with any evidence of dark/tarry stool Pending Studies at Discharge: Yes Studies:: Endoscopy/EGD in 2 months Stand-Alone Forms: My [facility], Work/School Release (Inpt), Smoking Cessation Medications and DC Order Prescriptions: New pantoprazole 40 mg Tablet,Delayed Release (Dr/Ec) 40 mg PO BID 60 Days Qty: 120 RF: 0 misoprostol 100 mcg Tablet 100 mcg PO QID 60 Days Qty: 240 RF: 0 sucralfate [Carafate] 100 mg/mL suspension 1 g PO Q6H 56 Days Qty: 2240 RF: 0 Continued methotrexate sodium 2.5 mg tablet 15 mg PO WE RF: 0 folic acid 1 mg tablet 1 mg PO QAM RF: 0 montelukast 10 mg tablet 10 mg PO QAM RF: 0 loratadine 10 mg Tablet 10 mg PO QAM RF: 0 Vitamin C 1,000 mg Tablet,Chewable 1 g PO BID RF: 0 levothyroxine [Levoxyl] 125 mcg tablet 125 mcg PO QAM RF: 0 cholecalciferol (vitamin D3) 2,000 unit Tablet 2,000 unit PO QAM RF: 0 lisinopril 20 mg tablet 20 mg PO QAM RF: 0 allopurinol 300 mg tablet 300 mg PO QAM RF: 0 Discontinued naproxen 500 mg tablet 500 mg PO BID RF: 0 Discharge Orders: Discharge Order (Routine); Ordered 01/28/20 Ordered By: Qing Collier Admission Data Admit Date/Time: 01/27/20 14:47 Attending Provider: Qing Collier Admit Provider: Travis Pelayo Primary Care Provider: Manny Chiu Other Providers: Dougie Tubbs ; Travis Pelayo
[2020-02-01] MEDS ORDERED: metHOTREXate sodium 2.5 MG TAB PO SCH (09:00)
[2020-02-01] MEDS ORDERED: INFLUENZA ADMINISTRATION CHARGE ONE (09:00)
[2020-02-01] MEDS ORDERED: INFLUENZA VIRUS QUAD VACCINE 0.5 ML SYR IM ONE (09:00)
== END 2020-01-28 15:52 | disposition home or self-care (01) | DRG 378 ==
LOC: ED 10:11 → ENDO 14:46 → SUATTDRO 14:47 → 2S 14:47